=== PATIENT | female | born 1985 | race African-American/Black ===

== ENCOUNTER 2020-10-05 23:39 | Inpatient (IN) | payer OTHER ==
[2020-10-06] MEDS ORDERED: Ondansetron ODT 4 MG TAB PO PRN (02:38)
[2020-10-06] MEDS ORDERED: Ondansetron PF 4 MG/2 ML Vial IVP PRN (02:38)
[2020-10-06] MEDS ORDERED: Acetaminophen 325 MG TAB PO PRN (02:38)
[2020-10-06 02:42] LABS: #Basophils 0.1 thou/uL (0.0-0.2); #Eosinphils 0.1 thou/uL (0.0-0.7); #Lymphocytes 1.1 thou/uL (1.20-3.40); #Monocytes 0.5 thou/uL (0.11-0.59); %Basophils 1.2 % (0.0-1.0); %Eosinophils 1.1 % (0.0-10.0); %Lymphocytes 18.8 % (21.0-51.0); %Monocytes 8.9 % (0.0-10.0); %Neutrophils 69.9 % (42.0-75.0); Hemoglobin 10.1 g/dL (12.0-16.0); Mean Corpuscular HGB CONC 32.9 g/dL (32.0-36.0); Mean Corpuscular Hemoglobin 26.1 pg (27.0-31.0); Mean Corpuscular Volume 79.4 fL (78.0-98.0); Mean Platelet Volume 6.6 fL (7.4-10.4); Platelet Count 288 thou/uL (130-400); RBC Distribution Width 15.2 % (11.5-14.5); Red Blood Cell (RBC) Count 3.88 mill/uL (4.20-5.40); White Blood Cell (WBC) Count 5.8 thou/uL (4.8-10.8)
[2020-10-06 02:44] LABS: Amnisure Test RUPTURE DETECTED (No Rupture)
[2020-10-06 02:45] LABS: Amnisure Internal Control QC ACCEPTABLE (ACCEPTABLE)
--- NOTE | 2020-10-06 03:31 | HP ---
CHIEF COMPLAINT: Leaking fluid. HISTORY OF PRESENT ILLNESS: This is a 35-year-old G3, P0-0-2-0, at approximately 16 weeks' gestation, who presented for a large gush of clear fluid around 10:30 tonight. She has had some continued leaking since then. She denies any vaginal bleeding, abdominal pain, back pain, or other concerns. She sees Dr. Barajas for her OB care and was last seen 2 weeks ago. She reports this has been uncomplicated so far. REVIEW OF SYSTEMS: Negative for head, eyes, ears, nose, and throat, cardiovascular, respiratory, GI, , neuro-psych, musculoskeletal, skin, or constitutional symptoms other than mentioned above. 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 PAST MEDICAL HISTORY: None. PAST SURGICAL HISTORY: Myomectomy and knee surgery. MEDICATIONS: Iron. ALLERGIES: NO KNOWN DRUG ALLERGIES. SOCIAL HISTORY: Negative for tobacco, alcohol, or drug abuse. FAMILY HISTORY: Noncontributory. PHYSICAL EXAMINATION: VITAL SIGNS: Afebrile with normal vital signs. GENERAL: Awake, alert, no acute distress. CHEST: Nonlabored. ABDOMEN: Soft, nontender to palpation. PELVIC: A speculum was placed in the vagina, where pooling was noted. There was also a positive Valsalva. No bleeding. The os appears closed. IMAGING: Pelvic ultrasound was performed, revealing a single IUP at approximately 15 weeks' gestation. Multiple fibroids were present. There was quantitatively a low amount of fluid with cervical funneling. ASSESSMENT: A 35-year-old G3, P0-0-2-0 with previable premature rupture of membranes as gross rupture was noted on exam. I counseled the patient on her options to include expectant management as well as transferring her to a place that offers therapeutic induction as that is not an option here. She is not septic at this time and the fetus still has heart tones. This was a very desired and she is tearful. She will be placed on observation tonight to reassess the status tomorrow with repeat ultrasound. At that time, we can discuss further options and possibly talk to her doctor in the morning for coordination of care. PLAN: The patient will be observed on Labor and Delivery and a CBC and type and screen are pending. Job ID: [id number] MTDD
[2020-10-06] MEDS: Butorphanol Tartrate 1 MG/ML VIAL SLOW IVP PRN ×6 (03:35→22:23)
[2020-10-06 04:01] VITALS: BMI 25.1
--- NOTE | 2020-10-06 09:48 | ULT ---
PRELIMINARY REPORT/[facility]/EMERGENCY AFTER HOURS PROCEDURE: EXAM: US Obstetrical, Complete >14 weeks. CLINICAL HISTORY: HX: 15WKS PREG- ABD PAIN, ?LEAKING FLUID. SEE NOTES ON LAST IMAGE. THANKS TECHNIQUE: Transabdominal imaging of the maternal pelvis and a > 14 week gestation with image documen tation. COMPARISON: None provided. FINDINGS: Noted are multiple large uterine fibroids measuring up to 9.9 cm in size. FETUS: There is a single living intrauterine gestation, estimated gestational age 15 weeks] POSITION: position is transverse]. HEART RATE: The heart rate is 160 beats per minute. BIOMETRICS: Based on composite biometry, the estimated gestational age by ultrasound is 15 weeks]. ANATOMIC SURVEY: Limited PLACENTA: The placenta is located [anterior/fundal. No sonographic evidence for previa or abruption. AMNIOTIC FLUID: Qualitatively appears low. CERVIX: There is moderate cervical funneling, U shaped, measuring about 4 cm in length by 2 cm in width - gre ater than 50 percent of cervical length. Transvaginal imaging may be of additional benefit for mayra r characterization. IMPRESSION: Single viable intrauterine . Amniotic fluid volume qualitatively appears low and there is c ervical funneling as described. ELECTRONICALLY SIGNED BY: Anh Giron D.O. Oct 06, 2020 1:15:18 AM REFUELER This report is intended for review by the ordering physician only, in accordance of law. If you recei ve this report in error, please call [facility] at [phone]. FINAL REPORT EMERGENCY AFTER HOURS OB ULTRASOUND: IMPRESSION: Agree with the preliminary interpretation. POS: [place]
--- NOTE | 2020-10-06 10:02 | ULT ---
LIMITED OB ULTRASOUND: Date: 10/06/2020 PROVIDED CLINICAL HISTORY: Premature rupture of membranes. FINDINGS: Correlation is made with the examination performed earlier same date. Redemonstration of multiple fibroids involving the uterus. There is interval migration of the previou sly described intrauterine gestation into the lower uterine segment and proximal cervical canal. Ther e is little to no amniotic fluid present. The presentation is breech. heart rate of 175 beats/m inute documented. IMPRESSION: Interval migration of the previously described intrauterine gestation into the lower uterine segment and cervical canal with little to no amniotic fluid present. POS: [place]
[2020-10-06 11:50] VITALS: BP 109/63; TEMP 98.8
--- NOTE | 2020-10-06 18:53 | PRG ---
DATE OF SERVICE: 10/06/2020 TIME OF SERVICE: 1814. Ms. Dutton is a patient of Dr. Barajas. She presented approximately 16 weeks last night with spontaneous rupture of membranes. She desires this strongly. She is having some cramps stayed all approximately every 4 hours. She has remained afebrile. No significant vaginal bleeding. Ultrasound from earlier this morning was reviewed which revealed persistent heart tones and descent of the fetus into the lower uterine segment and upper cervix. I discussed these findings with her and its ominous implications. We will continue to keep the patient on Labor and Delivery with analgesics as needed. We will repeat CBC in the morning and repeat ultrasound for FHTs and presence. No active management is reasonable for rupture of membranes this early on but with persistent FHTs and the ethical gnosticism directives no opportunity for induction of delivery is present without evidence of infection. We will discuss with Dr. Barajas later tonight or tomorrow. Job ID: [id number]
[2020-10-06] MEDS: Meperidine HCl/PF 25 MG/ML VIAL SLOW IVP PRN (20:38)
[2020-10-07] MEDS: Butorphanol Tartrate 1 MG/ML VIAL SLOW IVP PRN ×8 (00:28→23:57)
[2020-10-07] MEDS ORDERED: diphenhydrAMINE 25 MG CAP PO SCH (00:30)
[2020-10-07 01:35] LABS: SARS-CoV-2 PCR by NAA Not Detected (NotDetected)
--- NOTE | 2020-10-07 06:48 | PRG ---
DATE OF SERVICE: 10/07/2020 TIME OF SERVICE: 0620 Ms. Dutton has been resting overnight but continues to have cramps. Her vital signs are stable. She has had no significant vaginal bleeding noted. Ultrasound was repeated this morning, which revealed absence of FHTs and the fetus to be in the cervix and upper vaginal canal breech presentation. IMPRESSION: Intrauterine , incomplete at 16 weeks gestation. PLAN: Initiate Cytotec 600 p.o. q.3 hours. Anticipate delivery of fetus and placenta. Hopefully will avoid need for D and C. Findings of ultrasound are discussed with the patient and emotional care support offered. Job ID: [id number]
[2020-10-07 07:59] LABS: #Eosinphils 0.1 thou/uL (0.0-0.7); #Lymphocytes 1.2 thou/uL (1.20-3.40); #Monocytes 0.5 thou/uL (0.11-0.59); #Neutrophils 3.3 thou/uL (1.40-6.50); %Basophils 0.1 % (0.0-1.0); %Eosinophils 1.1 % (0.0-10.0); %Monocytes 10.5 % (0.0-10.0); %Neutrophils 64.3 % (42.0-75.0); Hemoglobin 9.8 g/dL (12.0-16.0); Mean Corpuscular HGB CONC 33.1 g/dL (32.0-36.0); Mean Corpuscular Hemoglobin 26.5 pg (27.0-31.0); Mean Corpuscular Volume 80.2 fL (78.0-98.0); Mean Platelet Volume 6.8 fL (7.4-10.4); Platelet Count 276 thou/uL (130-400); RBC Distribution Width 15.4 % (11.5-14.5); White Blood Cell (WBC) Count 5.1 thou/uL (4.8-10.8)
--- NOTE | 2020-10-07 08:36 | ULT ---
Limited obstetrical ultrasound: 10/07/2020 COMPARISON: 10/06/2020 HISTORY: Evaluate position, heart tones TECHNIQUE: Multiplanar grayscale sonographic imaging of the pelvis provided. FINDINGS: An intrauterine gestation is noted, with no heart tones appreciated and no evidence f or any amniotic fluid. The presentation is breech and it appears that the majority of the fetus is within the vaginal vault aside from the head which appears to be just above the cervix. The assessment of the intrauterine contents is limited secondary to the lack of amniotic fluid. Imaging in the region of the placenta demonstrates lobulated heterogeneity with areas of increased echogenici ty suspicious for hemorrhage. IMPRESSION: No heart tones appreciated and no amniotic fluid present, evidence of spontaneous a bortion. The majority of the fetus appears to lie within the vaginal vault aside from the head secondary to breech presentation. 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 Bond at [facility].
[2020-10-07] MEDS: Misoprostol 200 MCG TAB PO SCH ×4 (08:52→17:18)
[2020-10-07] MEDS ORDERED: FLU VACC QS2020-21(6MOS UP)/PF 60 MCG/0.5 ML SYRINGE IM ONE (09:00)
[2020-10-07] MEDS: Meperidine HCl/PF 25 MG/ML VIAL SLOW IVP PRN ×2 (14:49→21:56)
[2020-10-07] MEDS ORDERED: Promethazine HCl 25 MG/ML VIAL IM SCH (15:15)
[2020-10-07] MEDS ORDERED: Meperidine HCl/PF 25 MG/ML VIAL SLOW IVP SCH (15:15)
[2020-10-07] MEDS ORDERED: Meperidine HCl/PF 25 MG/ML VIAL ONE (16:14)
[2020-10-07] MEDS ORDERED: CEFAZOLIN 2 GM in Premix Bag 1 BAG IVPB SCH (18:00)
[2020-10-07] MEDS ORDERED: Lactated Ringer's 1,000 ML IV SCH (18:00)
[2020-10-07] MEDS ORDERED: Fentanyl 100 MCG/2 ML VIAL ONE ×2 (18:08→19:48)
[2020-10-07] MEDS ORDERED: Midazolam HCl 2 mg/2 ml Vial ONE (18:08)
[2020-10-07] MEDS ORDERED: Methylergonovine 0.2 MG/ML VIAL ONE (19:05)
[2020-10-07] MEDS ORDERED: Oxytocin 10 UNITS/ML VIAL ONE (19:05)
[2020-10-07] MEDS ORDERED: Ondansetron HCl/PF 4 MG/2 ML Vial IVP PRN (19:34)
[2020-10-07] MEDS ORDERED: Promethazine HCl 25 MG/ML VIAL SLOW IVP PRN (19:34)
[2020-10-07] MEDS ORDERED: Promethazine HCl 25 MG/ML VIAL IM PRN (19:34)
[2020-10-07] MEDS ORDERED: Acetaminophen/Codeine 30-300mg Tablet PO PRN (22:06)
[2020-10-07] MEDS ORDERED: Ketorolac Tromethamine 30 MG/ML VIAL IVP SCH (23:59)
--- NOTE | 2020-10-08 00:58 | DN ---
DATE OF PROCEDURE: 10/07/2020 The patient delivered a 16-week demise on 10/07/2020 at 1305 hours, vaginally complicated by retained placenta requiring operative procedure. Please refer to the operative note for those details. weight was 85 g. Quantitative blood loss was 265 cc. Placenta was extracted operatively after 4 to 5 hours of continued use of Cytotec. There were no lacerations. Dr. Alfaro was the supervising physician, though not present at the time of delivery, was present after the delivery for assessment of the placenta. The patient made aware of her options for post delivery with autopsy versus options of home versus a group burial offered by [facility]. Mother stable in the room in the immediate period. Job ID: [id number]
--- NOTE | 2020-10-08 01:03 | OP ---
DATE OF PROCEDURE: 10/07/2020 PREOPERATIVE DIAGNOSES: 1. Retained placenta. 2. Fibroid uterus. 3. Status post delivery for intrauterine demise at 16 weeks. POSTOPERATIVE DIAGNOSES: 1. Retained placenta. 2. Fibroid uterus. 3. Status post delivery for intrauterine demise at 16 weeks. PROCEDURE PERFORMED: Exam under anesthesia with extraction of placenta and suction dilation and curettage. Surgeon : ARUNA MARTINO MD Anesthesia : GEneral URINE OUTPUT: 500 mL. ESTIMATED BLOOD LOSS: 400 mL. COUNTS: Correct. COMPLICATIONS: None. SPECIMENS: Placenta. FINDINGS: Large fibroid uterus with retained placenta visible at the cervical os. DESCRIPTION OF PROCEDURE: The patient is a 35-year-old female who delivered a 16 week plus fetus after a demise earlier in the afternoon. After 4 to 5 hours of waiting expectantly with medical intervention via misoprostol, there was no evidence that the placenta would deliver spontaneously. There was some attempt to do at the bedside with the aid of ring forceps to tease the placenta out without success. The patient after providing informed consent was taken to the operating room, where she was placed under general anesthesia and placed in dorsal lithotomy position in [facility]. She was prepared and draped in normal sterile fashion. Attention vaginally was made with aid of a posterior weighted speculum and right angle retractors. The cervix was identified and grasped anteriorly with a single-tooth tenaculum. Visible at the os was the edge of the placenta, which was grasped with ring forceps and teased out in pieces. This was done repeatedly until most of the large pieces were removed. During this process, there began to be more significant bleeding. On vigorous bimanual exam, the patient was noted to have more retained placenta, which was digitally as much as possible and then removed manually with the use of ring forceps. A 12-Uzbek curette was then used for suction D and C. The suction was placed at 40 cm of water, and then upon 3 passes, there was more placental tissue removed. On digital exam, however, the patient was noted at the fundus to have what felt like retained placenta and was vigorously bleeding. This area was digitally as much as possible and given the irregular cavity due to fibroids, a curved curette was then directed digitally into the crevice and cavity intended and the suction was then reapplied removing the fundal piece of placenta that had been palpable. Once this was completed, the patient was noted to have resolution of her bleeding after a dose of Methergine and 40 units of Pitocin were started and bimanual pressure of the uterus was made for a few minutes. After waiting a few more minutes to see if bleeding would continue, the patient was noted to have good hemostasis at this point. With that said, procedure was completed. The patient was taken out of lithotomy position and the patient was extubated. Of note, the tenaculum sites on the cervix were noted to be hemostatic. The patient was taken to the recovery room in stable condition. Placenta was submitted to Pathology for evaluation. Job ID: [id number] MTDD
[2020-10-08] MEDS: Butorphanol Tartrate 1 MG/ML VIAL SLOW IVP PRN (04:32)
[2020-10-08] MEDS ORDERED: Ibuprofen 800 MG TAB PO PRN (06:38)
[2020-10-08 07:45] LABS: Hemoglobin 8.1 g/dL (12.0-16.0); Mean Corpuscular HGB CONC 33.1 g/dL (32.0-36.0); Mean Corpuscular Hemoglobin 26.9 pg (27.0-31.0); Mean Corpuscular Volume 81.2 fL (78.0-98.0); Mean Platelet Volume 6.8 fL (7.4-10.4); Platelet Count 247 thou/uL (130-400); RBC Distribution Width 15.3 % (11.5-14.5); Red Blood Cell (RBC) Count 3.02 mill/uL (4.20-5.40); White Blood Cell (WBC) Count 7.8 thou/uL (4.8-10.8)
--- NOTE | 2020-10-08 07:49 | DIS ---
DATE OF ADMISSION: 10/06/2020 DATE OF DISCHARGE: 10/08/2020 ADMITTING DIAGNOSES: 1. Intrauterine at 18 weeks. 2. Previable premature rupture of membranes. DISCHARGE DIAGNOSES: 1. Intrauterine at 18 weeks. 2. Previable premature rupture of membranes. 3. Intrauterine demise and subsequent delivery and retained placenta. PROCEDURE: Completed AB and operative removal of the placenta. HOSPITAL COURSE: The patient is a 35-year-old female, who presented with leakage of fluid at 16 weeks gestation and was found to have previable rupture of membranes. heart tones subsequently ended by the following day and induction was commenced with Cytotec until successful delivery at about 1 o'clock on hospital day 2. After a 4-5 hours; placenta still had not delivered. There was some attempt at the bedside to assist delivery of the placenta, but was unsuccessful. Decision was made to go to the operating room where with some difficulty, the placenta was successfully removed with extraction with a ring forceps and suction D and C. There is about 400 mL of blood loss during that case. Patient was given antibiotics for prophylaxis. Overnight she has done well. Her pain has been controlled and bleeding has been minimal. The patient this morning reports that she is having pain control with her medications and is comfortable going home. Vital signs this morning; blood pressure 98/58, heart rate of 85, respiratory rate of 18, temperature 98.1. In general she appears to be in no acute distress. She is alert, oriented, cooperative, and pleasant to interact with. She has a large irregular fibroid uterus palpable. The patient is being discharged home with ibuprofen and Tylenol 3. I have contacted her primary provider, Dr. Jenaro Barajas, who will be seeing her 2 week post delivery visit. Arrangements have been made for the baby to go to a home. The patient is stable at time of discharge. She has been given instructions to look for signs of infection and to contact her medical provider should she experience fever, increasing pain, or bleeding. Job ID: [id number]
== END 2020-10-08 07:49 | disposition home or self-care (01) | DRG 806 ==
LOC: ERS 23:39 → L&D 10-06 02:37 → OBSVTOIN 10-06 12:07
PROVIDERS: ADMIT Obstetrics & Gynecology; ATTEND Obstetrics & Gynecology
PROC: 10E0XZZ Delivery of Products of Conception, External Approach (ICD-10-PCS; principal; 2020-10-08)
PROC: 10D17Z9 Manual Extraction of Products of Conception, Retained, Via Natural or Artificial Opening (ICD-10-PCS; 2020-10-08)
DX: O42.912 Preterm premature rupture of membranes, unspecified as to length of time between rupture and onset of labor, second trimester (principal); O36.4XX0 Maternal care for intrauterine death, not applicable or unspecified; Z37.1 Single stillbirth; O03.4 Incomplete spontaneous abortion without complication; Z20.822 Contact with and (suspected) exposure to COVID-19; Z23 Encounter for immunization; D25.9 Leiomyoma of uterus, unspecified; Z3A.18 18 weeks gestation of pregnancy
CPT/HCPCS: 36415; 76815; 76816; 84112; 85025; 85027; 86850; 86900; 86901; 87635; 88305; 94760; 99285; G0378; J0595; J0690; J1885; J2175; J2210; J2250; J2550; J3010; Q0162; Q0163; U0003; U0005